=== PATIENT | female | born 1990 | race Caucasian/White ===

== ENCOUNTER 2016-12-16 19:26 | Emergency (ER) | payer OTHER ==
[~2016-12-16] VITALS: Ht 157.5 cm; Wt 54.0 kg
[~2016-12-16 19:26] MED LIST: ADDERALL XR 2525 MG PO; ADDERRALL PO; ALBUTEROL SULF8.5 GM IH; ATARAX,VISTARIL50 MG PO; BIRTH CONTROL; BIRTH CONTROL PO; CELEXA10 M1; CETIRIZINE HCL10 M2 PO; CITALOPRAM HBR10 MG PO; CITALOPRAM HBR20 M1 PO; CITALOPRAM PO; IPRATROPIUM BRO30 ML; JOLESSA1 EACH PO; LITE COAT ASPI325 M1 PO; MIRENA52 MG; MONTELUKAST SOD10 MG PO; NAPROSYN500 MG PO; PERCOCET 5/31 TABLET PO; PREDNISONE10 M1 PO; PREDNISONE20 MG PO; PRILOSEC20 MG PO; PROVENTIL,2.5 MG/3 M IH; ROBITUSSIN AC,T10 ML PO; SINGULAIR10 MG PO; SYMBICORT60 INHALAT IH; TOPIRAMATE100 MG PO; TRILEPTAL300 MG PO; ULTRACET1 TABLET PO; ULTRAM50 MG PO; VALIUM5 MG PO; VENTOLIN17 GM IH; VICODIN 5-3001 EACH PO; VOLTAREN50 MG PO; ZYRTEC10 M2 PO; [UNRECOGNIZED DRUG - REMARK] PO
[2016-12-16 19:55] VITALS: BP 140/74
== END 2016-12-16 22:34 | disposition left against medical advice (07) ==
LOC: EME 19:26
DX: G43.909 Migraine, unspecified, not intractable, without status migrainosus (principal); Z53.21 Procedure and treatment not carried out due to patient leaving prior to being seen by health care provider
CPT/HCPCS: 99281; 99282